=== PATIENT | male | born 1955 | race Caucasian/White ===

== ENCOUNTER 2019-04-18 06:37 | Day surgery (SDC) | payer BC, OTHER ==
[~2019-04-18] VITALS: Ht 175.3 cm; Wt 96.8 kg
[~2019-04-18 06:37] MED LIST: Vitamin D2000 UNIT PO
== END 2019-04-18 08:20 | disposition home or self-care (01) ==
LOC: ORSCSDS 06:37
PROVIDERS: Anesthesiology
PROC: 3E0R33Z Introduction of Anti-inflammatory into Spinal Canal, Percutaneous Approach (ICD-10-PCS; principal; 2019-04-18 07:45)
DX: M51.16 Intervertebral disc disorders with radiculopathy, lumbar region (principal); M46.1 Sacroiliitis, not elsewhere classified; E78.00 Pure hypercholesterolemia, unspecified
CPT/HCPCS: J1040

== ENCOUNTER → 2020-04-22 | Outpatient (CLI) | payer BC, OTHER | LOC: PLD 11:34 → LAB SHORT 11:34 | DX: D48.5 Neoplasm of uncertain behavior of skin (principal) | CPT/HCPCS: 88305 ==